=== PATIENT | male | born 1980 ===

== ENCOUNTER 2017-06-28 08:44 | Outpatient (CLI) | payer BC ==
--- NOTE | 2017-06-28 09:48 | XRay Report ---
LEFT SHOULDER RADIOGRAPHS INDICATION: Left shoulder pain. COMPARISON: None similar at this institution. FINDINGS: Frontal and Y views of the left shoulder, 3 projections demonstrate normal humeral head contour, well positioned against the glenoid. Mild humeral head degenerative spurring noted. Approximately 4 mm wedge/triangular density/defect off the superior glenoid also suspected on one of the views, possibly degenerative and/or old posttraumatic. Normal acromioclavicular joint. Preserved scapular contour. Normal visualized soft tissues, left ribs and lung. CONCLUSION: Left glenohumeral degenerative changes with a small nonspecific density about the superior glenoid, possibly degenerative versus old posttraumatic, as described. Orthopedic correlation with additional imaging as CT or MRI/arthrography may be considered, as warranted. Thank you for the opportunity to participate in this patient's care.
== END 2017-06-28 08:45 | disposition home or self-care (01) ==
LOC: SPVIMAG 08:44
PROVIDERS: ATTEND Orthopaedic Surgery
DX: M19.012 Primary osteoarthritis, left shoulder (principal); M25.812 Other specified joint disorders, left shoulder